=== PATIENT | male | born 1965 | race Caucasian/White ===

== ENCOUNTER → 2023-09-10 06:57 | Day surgery (SDC) | payer BC, SELFPAY | LOC: CATH 06:57 | PROVIDERS: ATTENDING PHYSICIAN Internal Medicine; FAMILY PHYSICIAN Physician Assistant Medical; OTHER PHYSICIAN Internal Medicine Cardiovascular Disease | DX: I48.19 Other persistent atrial fibrillation (principal); R00.2 Palpitations; R06.02 Shortness of breath; E78.5 Hyperlipidemia, unspecified; R73.03 Prediabetes; G47.33 Obstructive sleep apnea (adult) (pediatric); F17.220 Nicotine dependence, chewing tobacco, uncomplicated; Z79.01 Long term (current) use of anticoagulants; Z79.84 Long term (current) use of oral hypoglycemic drugs; Z79.85 Long-term (current) use of injectable non-insulin antidiabetic drugs | CPT/HCPCS: 92960; 93005 ==

== ENCOUNTER 2023-11-12 05:57 | Day surgery (SDC) | payer BC, SELFPAY ==
[2023-11-04 10:19] VITALS: BMI 35.6
[2023-11-04 11:02] LABS: % Basophils 0.7 % (0-2); % Eosinophils 0.9 % (0-6); % Immature Granulocytes 0.3 % (0-0.5); % Lymphocytes 24.6 % (20.5-51.1); % Monocytes 6.7 % (1.7-9.3); % Neutrophils 66.8 % (42.2-75.2); Absolute Basophils 0.1 10^3/uL (0-0.2); Absolute Eosinophils 0.1 10^3/uL (0-0.7); Absolute Lymphocytes 1.7 10^3/uL (1.2-3.4); Absolute Monocytes 0.5 10^3/uL (0.1-0.6); Absolute Neutrophils 4.6 10^3/uL (1.4-6.5); Hematocrit 48.3 % (39.0-52.0); Hemoglobin 16.3 g/dL (13.0-18.0); Mean Corp Hgb Conc. 33.7 g/dL (33.0-37.0); Mean Corpuscular Hgb 29.7 pg (27.0-31.0); Mean Platelet Volume 9.5 fL (7.4-10.4); Nucleated Red Blood Cells % 0 % (-); Platelet Count 248 10^3/uL (130-400); Red Blood Cell Count 5.49 10^6/uL (4.70-6.10); Red Cell Dist. Width 13.4 % (11.5-14.5); White Blood Cell Count 6.9 10^3/uL (4.8-10.8)
[2023-11-04 11:25] LABS: ALT (SGPT) 16 U/L (0-50); AST (SGOT) 19 U/L (17-59); Albumin 4.6 g/dl (3.5-5.0); Alkaline Phosphatase 62 U/L (38-126); Blood Urea Nitrogen 16 mg/dl (9-20); Calcium 9.8 mg/dl (8.4-10.2); Carbon Dioxide 24 mmol/L (22-30); Chloride 107 mmol/L (98-107); Estimated Creatinine Clearance > 125 ml/min; Glucose 100 mg/dl (70-99); Potassium 4.4 mmol/L (3.5-5.1); Sodium 137 mmol/L (135-145); Total Bilirubin 0.7 mg/dl (0.2-1.3); Total Protein 7.5 g/dl (6.3-8.2); eGFR > 60.00
[2023-11-12] VITALS (16 sets, daily range): BP systolic 87–129; BP diastolic 59–92; BMI 34.9
[2023-11-12 06:46] LABS: Glucose - Point of Care 96 mg/dl (70-99)
[2023-11-12 08:48] LABS: ACT-LR - POC 237 Seconds (116-155)
[2023-11-12 08:57] LABS: ACT-LR - POC 297 Seconds (116-155)
[2023-11-12 09:16] LABS: ACT-LR - POC 324 Seconds (116-155)
[2023-11-12 09:33] LABS: ACT-LR - POC 295 Seconds (116-155)
[2023-11-12 09:55] LABS: ACT-LR - POC 326 Seconds (116-155)
[2023-11-12 10:19] LABS: ACT-LR - POC 322 Seconds (116-155)
--- NOTE | 2023-11-12 10:37 | ITS.CL.ABL ---
Mailing Section Clerk - Ablation
Ablation
Procedure Report:
AFIB ablation:
Mr. Hardy is a very pleasant 58 yr old gentleman with medical history significant for symptomatic persistent atrial fibrillation who is here in the EP lab for atrial fibrillation ablation
Date of Procedure:
11/12/2023
Indications:
Symptomatic atrial fibrillation
Pre-Operative Diagnosis:
Persistent Atrial fibrillation
Post-Operative Diagnosis:
Persistent Atrial fibrillation
Procedure Performed:
Atrial fibrillation ablation with wide area circumferential ablation (WACA) approach for pulmonary vein isolation
Ablation of Epicardial connection in the right cristian area
Performing Physician:
Sara Espinoza MD
Assistants:
EP staff
Anesthesia:
See anesthesia records
Detailed Description of the Procedure:
Written informed consent was obtained from the patient after a full explanation of the risks and benefits of the procedure including the risks of sedation and anesthesia.
The patient was brought to the electrophysiology laboratory in stable condition in fasting state. Continuous electrocardiographic and hemodynamic monitoring was initiated.
The initial rhythm was atrial fibrillation.
The procedure site was meticulously prepared with surgical scrub and allowed to dry with no pooling. Sterile draping was applied to cover the procedure site. The image intensifier was draped with sterile bag and positioned over the patient. After
infusion of local anesthetic, vascular access was obtained under ultrasound guidance and sheaths were placed over guide wire as detailed below.
Sheath and Catheter Placement:
In the right femoral vein, an 8-H[place]er sheath was placed for use during the ablation procedure. A second 9-Fr sheath was placed for use during intracardiac echo procedure.
The sheaths were upgraded as needed during the case. Intracardiac catheters were positioned using direct fluoroscopic guidance.� ICE catheter was placed in RA. The following catheters / sheaths were placed
Sheaths:
��������������� Agilis sheath in right femoral vein upgraded from 8Fr in right femoral vein
��������������� 9Fr in right femoral vein
Catheters:
������������� Biosense To Thermacool STSF bidirectional (D/F) - at locations of HRA, RV, LA and LV.
������������� Pentaray catheter � at locations of RA� and LA
������������� ICE catheter - at locations of RA, SVC, and RV.
Intracardiac ECHO:
An 8-H[place] Konger AcuNav intracardiac ECHO (ICE) probe was advanced through the 9-[place]er sheath in the femoral vein into the right atrium under fluoroscopic and ICE ultrasound image guidance and a baseline ECHO study was performed. The left atrial size
was enlarged. There was trace tricuspid regurgitation. The aortic valve was normal. There was normal left ventricular size and function. There was no pericardial effusion. The DARRIUS has low velocities noted on Doppler in atrial fibrillation. All the
four veins were identified and good flow noted.
During the procedure, ICE was used for monitoring of complications, guidance of trans-septal puncture, monitor the catheter position and tracking ablation lesions. No change in the pericardial space noted throughout the procedure.
Trans-septal Puncture:
Heparin was initiated and infused to maintain appropriate ACT.
A J-tipped guidewire was advanced through the 8-[place] Konger sheath in the right femoral vein into the superior vena cava under fluoroscopic and ICE guidance. The 8-[place]er sheath was exchanged for an Agilis sheath which was advanced into the superior vena
cava.
While withdrawing the sheath the guide wire went through the foramen ovale to the LA. The PFO was at the superior edge of the fossa ovalis. The gilis was moved into the LA over the guidewire. Once atrial septum was cannulated, saline injection was
given into the left atrium. Both the sheath and the dilator was advanced into the left atrium. The dilator with the needle was withdrawn. Blood was aspirated from the Agilis sheath and arterial blood confirmed. The sheath was flushed. Saline
injection noted into the left atrium on ICE. The pressure waveform was checked ad LA pressure measured. The penta-ray catheter was advanced in the Agilis sheath into the left pulmonary vein.
The 3-D mapping was done and then the penta-ray was switched to ablation catheter and back to penta-ray as needed.
3D Electroanatomic Mapping:
Using the Pentaray catheter advanced through Agilis sheath into the left atrium, an electroanatomic map (EAM) of the left atrium was created using [employer] Carto mapping system. The map was used for localization of catheter position and
tacking of ablation lesions. The EAM of the left atrium showed 4 pulmonary veins with all four electrically connected to the body the LA. It showed some low voltage areas in atrial fibrillation on the posterior wall of the LA in atrial fibrillation
but once sinus rhythm achieved, there was no significant scar present. The LA was dilated in size.
The four pulmonary veins were very active and significant ectopy was noted.
Following the EAM, preparations were made for ablation.
Phrenic nerve stimulation attempt:
The right sided pulmonary veins were identified and the anterior antrum and the deep anterior locations of the PVs were check with high output stimulation that showed no phrenic nerve capture in any of the potential ablation areas.
The safe areas were marked and a design line was created through the safe areas of tested antral myocardium for ablation lesions.
Ablation:
Pulmonary vein Isolation:
Radiofrequency ablation was performed using an open irrigation, force-sensing 3.5mm radiofrequency ablation catheter (ThermocoSUPENTA STSF) by completing the circumferential lesions around the left and right pulmonary veins achieving pulmonary vein
isolation.
All the ablation lesions were guided by the [employer] SURPOINT module with the posterior lesions were limited to 45 eubanks for SURPOINT lesion index goal of 400 and anterior wall lesions were limited to SURPOINT index goal of 450.
The esophagus was noted to be on the right side of the LA near the PV antra based on the locations of the esophageal temperature probe. Ablation was stopped for any temperature increase of 0.1 degree C. Max esophageal temperature was 38.7C.
Cardioversion:
Due to the persistence of atrial fibrillation following the PVI, the decision was made to proceed with a cardioversion followed by the remainder of the ablation as detailed below. Therefore, a 200J shock was delivered to the chest via Zoll patches
placed with adventism of sinus rhythm. The patient remained hemodynamically stable throughout.
The CS was paced with the ablator and no cardiac pause noted.
Ablation # 2: Epicardial connection:
The epicardial connections around the cristian of the right sided PVs were identified by capturing LA from pacing from these locations. These locations were ablated and there was no capture noted after that.
Ablation # 3: Right carinal line formation:
Given the presence of epicardial connection in the carinal area, the decision was made to create a full line of block be placing ablation lesions connecting from the posterior antral ablation lesions to the anterior antral ablations.
EP study and Confirmation of the PVI and bidirectional block:
Following achievement of entrance block at the pulmonary veins, pacing from the pentaray catheter in DARRIUS and the pentaray in each of the four veins at 10 milliamps for 2 milliseconds showed entrance and exit block. All PVI were rechecked at the end
of the case and remained isolated with dissociated and local capture with pacing. Entrance and exit block were demonstrated in all veins.
The LA was mapped with Carto EAM in sinus rhythm confirming the line of block at the ablation lesions lines.
Sinus Node Function: The sinus node functions are within acceptable normal range.
The AV teddy functions are deemed within normal range.
Arrhythmia Induction:
No sustained arrhythmia was induced at the end of the study.�
Procedure End
ICE study was done again that showed no epicardial accumulation. No complications noted.
Following the completion of the EP study, catheters were removed. Protamine 40 mg was given at the end of the procedure and ACT was checked repeatedly. The sheaths were removed and hemostasis achieved with Vascade and manual compression after
acceptable ACT is achieved.
Left atrial Pressure:
Pre-Procedure: Mean LA pressure was 10mmHg
Post-Procedure: Mean LA pressure was 12mmHg
Post-Procedure: Mean RA pressure was 9mmHg
Estimated Blood loss:
<10 cc
Specimens Removed:
None.
Implants / Devices:
None
Urine output:
None
Packs / Drains/ Tubes:
None
Instrument / Sponge Count Correct:
Yes
Complications of the Procedure:
None
Condition of Patient at Time of Transfer:
Hemodynamically stable with no neurological or vascular compromise.
Summary:
Successful atrial fibrillation ablation with circumferential bidirectional line of block at pulmonary vein antra (Pulmonary vein isolation)
[2023-11-12] MEDS: ANESTHETIC LOZENGE 1 LOZENGE PO (11:08)
[2023-11-12 11:43] LABS: Glucose - Point of Care 114 mg/dl (70-99)
--- NOTE | 2023-11-12 13:05 | W.PN.UPDATE ---
Update Note
Progress Note Update
58 yo WM s/p PVI (same day) He feels good, no cp, sob, alireza diet, voiding, amb w/o dizziness, EKG SR, no ectopy, R fem site c/d/i no HT. He will take his Eliquis at 5pm at home. Activity restrictions reviewed. He will continue metoprolol and take PPI
for 2 weeks. He will f/u [facility] in 2 weeks. He is for d/c home after 130p.
Mr. Hardy is a very pleasant 58 yr old gentleman with medical history significant for symptomatic persistent atrial fibrillation who is here in the EP lab for atrial fibrillation ablation
Post-Operative Diagnosis:
Persistent Atrial fibrillation
Procedure Performed:
Atrial fibrillation ablation with wide area circumferential ablation (WACA) approach for pulmonary vein isolation
Ablation of Epicardial connection in the right cristian area
== END 2023-11-12 13:35 | disposition home or self-care (01) ==
LOC: CATH 05:57
PROVIDERS: ATTENDING PHYSICIAN Internal Medicine Cardiovascular Disease; FAMILY PHYSICIAN Physician Assistant Medical; OTHER PHYSICIAN Internal Medicine Cardiovascular Disease
DX: I48.19 Other persistent atrial fibrillation (principal)
CPT/HCPCS: C1769; C1732; C1766; C1892; C1759; 36415; 76937; 80053; 82962; 85025; 85347; 86850; 86900; 86901; 93005; 93656

== ENCOUNTER 2023-12-02 09:27 | Day surgery (SDC) | payer BC, SELFPAY | END 2023-12-02 11:27 | disposition home or self-care (01) | LOC: CATH 09:27 | PROVIDERS: ATTENDING PHYSICIAN Internal Medicine Cardiovascular Disease; FAMILY PHYSICIAN Physician Assistant Medical | DX: I48.0 Paroxysmal atrial fibrillation (principal); E11.9 Type 2 diabetes mellitus without complications; G47.33 Obstructive sleep apnea (adult) (pediatric); Z79.01 Long term (current) use of anticoagulants; R73.03 Prediabetes | CPT/HCPCS: 92960; 93005 ==

== ENCOUNTER → 2024-07-16 15:40 | Outpatient (REF) | payer BC, SELFPAY | LOC: DHSLP 15:40 | PROVIDERS: ATTENDING PHYSICIAN Internal Medicine Critical Care Medicine; FAMILY PHYSICIAN Physician Assistant Medical | DX: G47.33 Obstructive sleep apnea (adult) (pediatric) (principal); R09.02 Hypoxemia | CPT/HCPCS: 95811 ==

== ENCOUNTER → 2024-08-04 09:46 | Outpatient (REF) | payer BC, SELFPAY | LOC: HWRAD 09:46 | PROVIDERS: ATTENDING PHYSICIAN Specialist; FAMILY PHYSICIAN Family Medicine | DX: N39.0 Urinary tract infection, site not specified (principal) | CPT/HCPCS: 76770 ==